=== PATIENT | male | born 1990 | race Caucasian/White ===

== ENCOUNTER 2018-04-25 09:37 | Observation (INO) | payer OTHER ==
[2018-04-25] MEDS ORDERED: NS 1,000 ML IV ONE ×2 (10:02→13:06)
--- NOTE | 2018-04-25 10:05 | EDPHY ---
H & P Stated Complaint: RUQ abd pain Time Seen by Provider: 04/25/18 09:48 HPI/ROS: CHIEF COMPLAINT: Right lower quadrant abdominal pain times 4 days HISTORY OF PRESENT ILLNESS: 27-year-old generally healthy male complaining of right lower quadrant abdominal pain for the past 4 days associated with intermittent loose stool. No nausea or vomiting. No definitive pattern, not related to food intake. No back or flank pain. No testicular pain. No urinary complaints. No recent illness. No chest pain. Last oral intake dinner last evening REVIEW OF SYSTEMS: A ten point review of systems was performed and is negative with the exception of the items mentioned in the HPI PAST MEDICAL & SURGICAL HISTORY: No history of abdominal surgeries. SOCIAL HISTORY:Intermittent tobacco and alcohol use. Patient's mother is a nurse at [employer] PHYSICAL EXAM (Prior to examination, patient consented to physical exam, hands were washed and my usual and customary physical exam procedures followed) 1) GENERAL: Well-developed, well-nourished, alert and oriented. Appears to be in no acute distress. 2) HEAD: Normocephalic, atraumatic 3) HEENT: Pupils equal, round, reactive to light bilaterally. Sclera anicteric. [Nasopharynx, oropharynx, clear, no lesions. Dry mucous membrane 4) NECK: Full range of motion, no meningeal signs. 5) LUNGS: Clear auscultation bilaterally, no wheezes, no rhonchi, no retractions. 6) HEART: Regular rate and rhythm, no murmur, no heave, no gallop. 7) ABDOMEN: No guarding, focally tender to palpation McBurney's point, negative Hunt's, negative Rovsing's, negative peritoneal sign, 8) MUSCULOSKELETAL: Moving all extremities, no focal areas of tenderness, no obvious trauma. No peripheral edema or discoloration. 9) BACK: No CVA tenderness, no midline vertebral tenderness, no fluctuance, no step-off, no obvious trauma, no visual or palpable abnormality. 10) SKIN: No rash, no petechiae. 11) : Circumcised normal male external genitalia bilateral testicles nontender, no high-riding testicle. no inguinal mass. DIFFERENTIAL DIAGNOSIS: My differential diagnosis includes, but is not limited to, acute appendicitis, acute cholecystitis, bowel obstruction, acute pancreatitis, testicular torsion, gastritis The patient understands that this diagnosis is provisional and can never be 100% accurate. This is a partial list of diagnoses considered. These considerations are based on history, physical exam, past history and reassessment. - Personal History Current Tetanus/Diphtheria Vaccine: Unsure Current Tetanus Diphtheria and Acellular Pertussis (TDAP): Unsure - Medical/Surgical History Hx Asthma: No Hx Chronic Respiratory Disease: No Hx Diabetes: No Hx Cardiac Disease: No Hx Renal Disease: No Hx Cirrhosis: No Hx Alcoholism: No Hx HIV/AIDS: No Hx Splenectomy or Spleen Trauma: No Other PMH: denies - Social History Smoking Status: Never smoked Constitutional: Initial Vital Signs Temperature (C) 36.8 C 04/25/18 09:40 Heart Rate 70 04/25/18 09:40 Respiratory Rate 16 04/25/18 09:40 Blood Pressure 147/104 H 04/25/18 09:40 O2 Sat (%) 96 04/25/18 09:40 O2 Delivery Mode Room Air Allergies/Adverse Reactions: amoxicillin Allergy (Verified 04/25/18 09:40) Penicillins Allergy (Verified 02/01/10 18:09) Home Medications: Medication Instructions Recorded NO HOME MEDS 02/01/10 Medical Decision Making - Diagnostics Imaging Results: Imaging Impressions Abdomen Ultrasound 04/25/18 10:02 Impression: 1. Nonvisualization of the appendix with no secondary sonographic evidence of acute appendicitis. 2. Multiple reactive appearing mesenteric lymph nodes compatible with primary or secondary mesenteric adenitis. These findings were discussed with Dr. Davila by telephone at 10:52 AM on 04/25/2018. Abdomen CT 04/25/18 10:55 Impression: 1. Acute nonspecific colitis involving the entire ascending colon from the cecum distally for 14 cm, and possible terminal ileum probably representing inflammatory bowel disease, Crohn's colitis, versus less likely infectious/ inflammatory colitis. Recommend colonoscopy. 2. Mild edema and thickening of the appendix up to 10 mm likely from the ascending colitis. 3. Minimal free fluid in the posterior pelvis. 4. A few inflammatory lymph nodes. 5. No drainable abscess or pneumoperitoneum. No bowel obstruction. Findings and recommendations discussed with Emergency Department physician, Abhinav Davila PA-C at 1135 hour, 04/25/2018. Final report concurs with initial preliminary interpretation. Images reviewed myself ED Course/Re-evaluation: 10:03 a.m.: Patient is focally tender to palpation right lower quadrant. Will obtain laboratory studies, ultrasound. Mother requests that if patient necessitate surgical intervention that Dr. Daniel Russell be consulted. Patient remains NPO since last evening. I saw this patient independently based on established practice protocols. Care of patient under supervision of secondary supervising physician Dr Mendez with whom I discussed case. 10:54 a.m.: Discussed with patient and his mother the ultrasound findings which show a nonvisualized appendix. I re-examined the patient remains focally tender in the right lower quadrant. Discussed options. Mother requests CT imaging . Indications risks benefits discussed with patient mother and they consent. 12:10 p.m.: Discussed the imaging findings with the mother. He is still focally tender in the right lower quadrant we discussed the edematous nature of his appendix. I consulted Dr. Daniel Russell who is currently in operating room will plan on coming to the ER to evaluate patient. Patient remains NPO since last night 1226 pm: Dr Russell in ER to see patient Dr. Russell has evaluated the patient feels that his symptoms are less than likely secondary to acute surgical abdominal pathology. He recommends admission to hospitalist service. 1:05 p.m.: Consultation with hospitalist Silvia who is kindly agreed to admit patient Dr. East - Data Points Laboratory Results: Laboratory Results 04/25/18 10:01 04/25/18 10:01 04/25/18 04/25/18 10:01 10:01 WBC 9.31 10^3/uL 10^3/uL (3.80-9.50) RBC 5.16 10^6/uL 10^6/uL (4.40-6.38) Hgb 16.3 g/dL g/dL (13.7-17.5) Hct 47.8 % % (40.0-51.0) MCV 92.6 fL fL (81.5-99.8) MCH 31.6 pg pg (27.9-34.1) MCHC 34.1 g/dL g/dL (32.4-36.7) RDW 12.1 % % (11.5-15.2) Plt Count 226 10^3/uL 10^3/uL (150-400) MPV 9.5 fL fL (8.7-11.7) Neut % (Auto) 64.6 % % (39.3-74.2) Lymph % (Auto) 17.1 % % (15.0-45.0) [place] % (Auto) 15.5 % H % (4.5-13.0) Eos % (Auto) 2.3 % % (0.6-7.6) Baso % (Auto) 0.3 % % (0.3-1.7) Nucleat RBC Rel Count 0.0 % % (0.0-0.2) Absolute Neuts (auto) 6.02 10^3/uL 10^3/uL (1.70-6.50) Absolute Lymphs (auto) 1.59 10^3/uL 10^3/uL (1.00-3.00) Absolute Monos (auto) 1.44 10^3/uL H 10^3/uL (0.30-0.80) Absolute Eos (auto) 0.21 10^3/uL 10^3/uL (0.03-0.40) Absolute Basos (auto) 0.03 10^3/uL 10^3/uL (0.02-0.10) Absolute Nucleated RBC 0.00 10^3/uL 10^3/uL (0-0.01) Immature Gran % 0.2 % % (0.0-1.1) Immature Gran # 0.02 10^3/uL 10^3/uL (0.00-0.10) Sodium 143 mEq/L mEq/L (135-145) Potassium 4.5 mEq/L mEq/L (3.3-5.0) Chloride 105 mEq/L mEq/L (97-110) Carbon Dioxide 24 mEq/l mEq/l (22-31) Anion Gap 14 mEq/L mEq/L (8-16) BUN 11 mg/dL mg/dL (7-23) Creatinine 1.0 mg/dL mg/dL (0.7-1.3) Estimated GFR > 60 Glucose 88 mg/dL mg/dL (70-100) Calcium 9.7 mg/dL mg/dL (8.5-10.4) Total Bilirubin 0.6 mg/dL mg/dL (0.1-1.4) Conjugated Bilirubin 0.1 mg/dL mg/dL (0.0-0.5) Unconjugated Bilirubin 0.5 mg/dL mg/dL (0.0-1.1) AST 24 IU/L IU/L (17-59) ALT 26 IU/L IU/L (21-72) Alkaline Phosphatase 66 IU/L IU/L (38-126) Total Protein 7.4 g/dL g/dL (6.3-8.2) Albumin 4.2 g/dL g/dL (3.5-5.0) Lipase 109 IU/L IU/L (23-300) Medications Given: Discontinued Medications Sodium Chloride (Ns) 1,000 mls @ 0 mls/hr IV EDNOW ONE; Wide Open PRN Reason: Protocol Stop: 04/25/18 10:03 Last Admin: 04/25/18 10:15 Dose: 1,000 mls Departure - Departure Disposition: [facility] Inpatient Acute Clinical Impression: Colitis Condition: Fair Referrals: NONE *PRIMARY CARE P,. [Primary Care Provider] - As per Instructions
[2018-04-25 10:16] LABS: PLATELET COUNT 226 10^3/uL (150-400)
[2018-04-25] MEDS ORDERED: IOPAMIDOL (ISOVUE-300) 100 ML BTL ONE ×2 (11:03→11:10)
[2018-04-25] MEDS ORDERED: ONDANSETRON 4 MG/2 ML VIAL IVP PRN (15:57)
[2018-04-25] MEDS ORDERED: ONDANSETRON DISINTEGRATING 4 MG TAB PO PRN (15:57)
[2018-04-25] MEDS ORDERED: ACETAMINOPHEN 325 MG TAB PO PRN (15:57)
[2018-04-25] MEDS ORDERED: hydrALAZINE 20 MG/ML VIAL IVP PRN (16:00)
--- NOTE | 2018-04-25 16:06 | PDGENHP ---
History and Physical - Chief Complaint abd pain - History of Present Illness 27-year-old generally healthy male complaining of right lower quadrant abdominal pain for the past 4 days associated with intermittent loose stool. No nausea or vomiting. No definitive pattern, not related to food intake. No back or flank pain. No testicular pain. No urinary complaints. No recent illness. No chest pain. Last oral intake dinner last evening CT abd shows non specific colitis involving the ascending colon from the cecum. No abscess. PAST MEDICAL & SURGICAL HISTORY: No history of abdominal surgeries. SOCIAL HISTORY:Intermittent tobacco and alcohol use. Patient's mother is a nurse at [employer] [facility] [employer] History Information - Allergies/Home Medication List Allergies/Adverse Reactions: amoxicillin Allergy (Verified 04/25/18 13:36) Hives Penicillins Allergy (Verified 04/25/18 13:36) Hives Home Medications: NK [No Known Home Meds] 04/25/18 [Last Taken Unknown] I have personally reviewed and updated: medical history, social history - Social History Smoking Status: Current some day smoker Review of Systems Review of Systems: ROS: 10pt was reviewed & negative except for what was stated in HPI & below Physical Exam Physical Exam: Temp Pulse Resp BP Pulse Ox 37 C 57 L 12 151/86 H 96 04/25/18 15:09 04/25/18 15:09 04/25/18 15:09 04/25/18 15:09 04/25/18 15:09 Constitutional: no apparent distress Eyes: PERRL, EOMI Ears, Nose, Mouth, Throat: moist mucous membranes, hearing normal, ears appear normal Cardiovascular: regular rate and rhythym, No edema Respiratory: no respiratory distress, no rales or rhonchi, clear to auscultation Gastrointestinal: normoactive bowel sounds, tenderness (generalized, worse RLQ) Skin: warm Musculoskeletal: full muscle strength Neurologic: AAOx3 Psychiatric: interacting appropriately, not anxious, not encephalopathic Lymph, Heme, Immunologic: No petechiae Lab Data & Imaging Review 04/25/18 10:01 04/25/18 10:01 WBC 9.31 10^3/uL (3.80-9.50) 04/25/18 10:01 RBC 5.16 10^6/uL (4.40-6.38) 04/25/18 10:01 Hgb 16.3 g/dL (13.7-17.5) 04/25/18 10:01 Hct 47.8 % (40.0-51.0) 04/25/18 10:01 MCV 92.6 fL (81.5-99.8) 04/25/18 10:01 MCH 31.6 pg (27.9-34.1) 04/25/18 10:01 MCHC 34.1 g/dL (32.4-36.7) 04/25/18 10:01 RDW 12.1 % (11.5-15.2) 04/25/18 10:01 Plt Count 226 10^3/uL (150-400) 04/25/18 10:01 MPV 9.5 fL (8.7-11.7) 04/25/18 10:01 Neut % (Auto) 64.6 % (39.3-74.2) 04/25/18 10:01 Lymph % (Auto) 17.1 % (15.0-45.0) 04/25/18 10:01 [place] % (Auto) 15.5 % (4.5-13.0) H 04/25/18 10:01 Eos % (Auto) 2.3 % (0.6-7.6) 04/25/18 10:01 Baso % (Auto) 0.3 % (0.3-1.7) 04/25/18 10:01 Nucleat RBC Rel Count 0.0 % (0.0-0.2) 04/25/18 10:01 Absolute Neuts (auto) 6.02 10^3/uL (1.70-6.50) 04/25/18 10:01 Absolute Lymphs (auto) 1.59 10^3/uL (1.00-3.00) 04/25/18 10:01 Absolute Monos (auto) 1.44 10^3/uL (0.30-0.80) H 04/25/18 10:01 Absolute Eos (auto) 0.21 10^3/uL (0.03-0.40) 04/25/18 10:01 Absolute Basos (auto) 0.03 10^3/uL (0.02-0.10) 04/25/18 10:01 Absolute Nucleated RBC 0.00 10^3/uL (0-0.01) 04/25/18 10:01 Immature Gran % 0.2 % (0.0-1.1) 04/25/18 10:01 Immature Gran # 0.02 10^3/uL (0.00-0.10) 04/25/18 10:01 Sodium 143 mEq/L (135-145) 04/25/18 10:01 Potassium 4.5 mEq/L (3.3-5.0) 04/25/18 10:01 Chloride 105 mEq/L (97-110) 04/25/18 10:01 Carbon Dioxide 24 mEq/l (22-31) 04/25/18 10:01 Anion Gap 14 mEq/L (8-16) 04/25/18 10:01 BUN 11 mg/dL (7-23) 04/25/18 10:01 Creatinine 1.0 mg/dL (0.7-1.3) 04/25/18 10:01 Estimated GFR > 60 04/25/18 10:01 Glucose 88 mg/dL (70-100) 04/25/18 10:01 Calcium 9.7 mg/dL (8.5-10.4) 04/25/18 10:01 Total Bilirubin 0.6 mg/dL (0.1-1.4) 04/25/18 10:01 Conjugated Bilirubin 0.1 mg/dL (0.0-0.5) 04/25/18 10:01 Unconjugated Bilirubin 0.5 mg/dL (0.0-1.1) 04/25/18 10:01 AST 24 IU/L (17-59) 04/25/18 10:01 ALT 26 IU/L (21-72) 04/25/18 10:01 Alkaline Phosphatase 66 IU/L (38-126) 04/25/18 10:01 Total Protein 7.4 g/dL (6.3-8.2) 04/25/18 10:01 Albumin 4.2 g/dL (3.5-5.0) 04/25/18 10:01 Lipase 109 IU/L (23-300) 04/25/18 10:01 Stool Occult Bld Scrn POSITIVE (NEGATIVE) H 04/25/18 13:30 Stool Ova & Parasites MUCOID BROWN STOOL 04/25/18 13:30 C. difficile Tox (PCR) TNP 04/25/18 13:30 Direct Microscop Exam NONE SEEN (NONE SEEN) 04/25/18 13:30 Assessment & Plan Assessment: #Colitis (Acute) #HTN Plan: The pt has been evaluated by Dr. Russell and the etiology of the colitis is non surgical. The pt will have bowel rest and IVF. Await GI PCR If worsens, then GI consult Pain mgmt IVF
[2018-04-25] MEDS: NS W/ 20 KCl/L 1,000 ML IV SCH (17:00)
[2018-04-26 05:32] LABS: PLATELET COUNT 195 10^3/uL (150-400)
[2018-04-26] MEDS: NS W/ 20 KCl/L 1,000 ML IV SCH (08:29)
--- NOTE | 2018-04-26 11:26 | PDDCSUM ---
Discharge Summary Discharge Summary: The patient is a 27 yo male who presented to the ED with abdominal pain and bloody diarrhea. A CT of abd showed colitis. He was admitted. He was kept on a Clear liquid diet. IV fluid hydration was given. A GI PCR showed E-Coli - Shigella Toxin. The case was discussed with Dr. Goyo Sevilla with GI who confirms that the treatment is supportive. The pt overall is feeling much better today. He reports no abd pain and he does not have any abdominal tenderness on palpation. His last episode of diarrhea was yesterday evening and he reports that it did not have visible blood. I discussed with the patient and his mother and father that treatment for his Shigella is supportive and that no antibiotics are needed. We also discussed that a potential complication of his infection is HUS. We discussed that there is no current evidence that he has HUS and that it can be a late complication of his disease. We went over symptoms such as decreased urination, confusion, and bruising. I've included these symptoms clearly on his discharge paperwork. We also discussed that it is imperative that he follows up with his PCP early next week for follow up and obtaining new blood work. We also discussed the importance of maintaining hydration and avoiding alcohol or activities that may lead to dehydration while he is actively ill. We discussed return precautions including worsening abdominal pain, fever, confusion, or worsening malaise. His parents were at bedside and everyone is in agreement with discharge. His mother is a surgical nurse here at [facility] and understands the importance of following up with his PCP. Discharge Diagnosis: #Bloody Diarrhea -culture c/w E-Coli Shigella Toxin -Hydration has been optimized -He does not have Leukocytosis, anemia, thrombocytopenia, KATELYNN, or neurological symptoms. -He feels better. His abdomen is not tender on exam. He is reporting improved diarrhea and has not had an episode since yesterday evening and there was no visible blood in it #HTN, resolved Exam: NAD, AAOX3, EOMI MMM NORMAL WORK OF BREATHING S/NT/ND, NO GUARDING. NON TENDER SKIN IS WARM NO EDEMA MEDS: SEE MED REC total time spent on discharge including communication with the pt, his family, and discussion with GI is 45 minutes
[2018-04-26 11:47] VITALS: BP 147/96
--- NOTE | 2018-04-28 16:59 | GCON ---
[f rep st] CONSULTATION The patient is a 27-year-old male who is seen in the ER with right lower quadrant pain. I was asked to consult for evaluation to rule out appendicitis. CT scan reveals significant colitis involving th e ascending colon and cecum and possibly the small bowel. The appendix is reportedly normal per Radi ology, although it is difficult to separate the appendix from the phlegmon of colitis in the area. T he patient has had no fever and no vomiting and no similar episodes before. However, this has been g oing on for several days and is typified by profuse, watery diarrhea. He has not seen any blood in h is diarrhea but has not had a solid bowel movement for some time. No else in the family is sick. He knows of no exposure to any bad food. PAST MEDICAL HISTORY: Essentially negative. FAMILY HISTORY: Noncontributory. REVIEW OF SYSTEMS: Negative on a full 10-point review except as related to the HPI. MEDICATIONS: None. PHYSICAL EXAMINATION: GENERAL: An alert, healthy 27-year-old male in no acute distress. HEAD AND N JANY: Reveals no icterus or oral lesions or adenopathy. Neck supple and nontender. CHEST: Clear an d symmetric. CARDIAC: Regular rhythm. ABDOMEN: Soft. He has some tenderness in the right lower q uadrant but no peritoneal signs. No hernias and no masses. GENITALIA: Normal. EXTREMITIES: Revea l full range of motion and full distal pulses. IMPRESSION: Probable colitis of the right colon of uncertain etiology but most likely infectious. RECOMMENDATIONS: Would be for admission to Medicine for observation. Stool cultures and follow up C BC, and GI consultation. /[id number]/MODL
== END 2018-04-26 12:05 | disposition home or self-care (01) ==
LOC: F3E 15:06
PROVIDERS: ADMIT Family Medicine; ATTEND Family Medicine
DX: A04.4 Other intestinal Escherichia coli infections (principal); B96.21 Shiga toxin-producing Escherichia coli [E. coli] [STEC] O157 as the cause of diseases classified elsewhere; E86.9 Volume depletion, unspecified; F17.210 Nicotine dependence, cigarettes, uncomplicated; Z88.0 Allergy status to penicillin
CPT/HCPCS: 74177; 76705; 96360; 96361; 99285; G0378; Q9967